=== PATIENT | male | born 1980 | race African-American/Black ===

== ENCOUNTER 2022-05-05 07:15 | Emergency (ER) | payer MEDICAID ==
[~2022-05-05] VITALS: Ht 182.9 cm; Wt 95.0 kg
[2022-05-05] MEDS ORDERED: HALOPERIDOL LACTATE 5MG/ML VIAL IM STA (08:07)
[2022-05-05] MEDS ORDERED: DIAZEPAM 5 MG/ML 2ML CPJ IM ONE (08:15)
[2022-05-05] MEDS ORDERED: SODIUM CHLORIDE 0.9% 1,000 ML IV ONE (10:15)
[2022-05-05] MEDS ORDERED: HALOPERIDOL LACTATE 5MG/ML VIAL IM ONE (10:15)
[2022-05-05] MEDS ORDERED: MIDAZOLAM HCL 2 MG/2 ML VIAL IV ONE (10:15)
[2022-05-05] MEDS ORDERED: DIPHENHYDRAMINE 25MG CAPSULE PO NR (11:30)
[2022-05-05] MEDS ORDERED: LORAZEPAM 1MG TABLET PO NR (11:30)
[2022-05-05 13:42] VITALS: BP 178/108
== END 2022-05-05 15:24 | disposition left against medical advice (07) ==
LOC: ER 08:32
DX: G92.9 Unspecified toxic encephalopathy (principal); R00.0 Tachycardia, unspecified; F15.10 Other stimulant abuse, uncomplicated
CPT/HCPCS: 96372; 99291; J1630; J3360; J7030; Q0163